=== PATIENT | female | born 1990 | race Two or more races ===

== ENCOUNTER 2018-06-21 23:14 | Emergency (ER) | payer MEDICAID, OTHER ==
[~2018-06-21] VITALS: Ht 162.6 cm; Wt 49.9 kg
[2018-06-22] MEDS ORDERED: predniSONE 20 MG TABLET PO ONE (01:30)
[2018-06-22] MEDS ORDERED: FAMOTIDINE (20 MG) 20 MG TABLET PO ONE (01:30)
[2018-06-22] MEDS ORDERED: diphenhydrAMINE HCL 25 MG CAPSULE PO ONE (01:30)
[2018-06-22] MEDS ORDERED: FAMOTIDINE (20 MG) 20 MG TABLET ONE (01:38)
[2018-06-22] MEDS ORDERED: diphenhydrAMINE HCL 50 MG CAPSULE ONE (01:38)
[2018-06-22] MEDS ORDERED: predniSONE 20 MG TABLET ONE (01:38)
[2018-06-22 01:48] VITALS: BP 118/77
== END 2018-06-22 01:48 | disposition home or self-care (01) ==
LOC: ER 23:16
DX: L50.8 Other urticaria (principal)
CPT/HCPCS: 99284; A4606; J7512; Q0163

== ENCOUNTER 2024-09-08 19:31 | Emergency (ER) | payer MEDICAID, OTHER ==
[~2024-09-08] VITALS: Ht 157.5 cm; Wt 58.1 kg
[2024-09-08] MEDS ORDERED: ACETAMINOPHEN ES 500 MG TABLET ONE (20:48)
[2024-09-08] MEDS: ACETAMINOPHEN ES 500 MG TABLET PO ONE (20:51)
[2024-09-08 20:52] VITALS: BP 125/86; TEMP 98.2; O2SAT 100
== END 2024-09-08 20:52 | disposition home or self-care (01) ==
LOC: ER 19:33
DX: F41.9 Anxiety disorder, unspecified (principal); R07.89 Other chest pain; R10.12 Left upper quadrant pain; R51.9 Headache, unspecified